=== PATIENT | male | born 1945 | race Caucasian/White ===

== ENCOUNTER 2023-07-27 08:50 | Day surgery (SDC) | payer MEDICARE, BC ==
[2023-07-26 15:10] LABS: BASOPHILS % (AUTO) 0.3 % (0-1); EOSINOPHILS # (AUTO) 0.6 X10'3 (0-0.9); EOSINOPHILS % (AUTO) 4.7 % (0-6); LYMPHOCYTES # (AUTO) 2.2 X10'3 (1.1-4.8); MEAN CORPUSCULAR HEMOGLOBIN 31.1 PG (27.0-31.0); MEAN CORPUSCULAR HGB CONC 33.3 g/dL (33.0-36.5); MEAN CORPUSCULAR VOLUME 93.4 FL (78-98); MEAN PLATELET VOLUME 8.5 FL (7.4-10.4); MONOCYTES # (AUTO) 1.7 X10'3 (0-0.9); MONOCYTES % (AUTO) 14.6 % (2-12); NEUTROPHILS # (AUTO) 7.5 X10'3 (1.8-7.7); NEUTROPHILS % (AUTO) 62.4 % (42-75); PLATELET COUNT 244 X10'3 (140-440); RED BLOOD COUNT 4.82 X10'6 (4.70-6.10)
[2023-07-26 15:19] LABS: ALBUMIN 3.9 G/DL (3.4-5.0); ANION GAP 12 (8-16); APTT 28 SECONDS (22-32); BLOOD UREA NITROGEN 14 MG/DL (7-18); BUN/CREATININE RATIO 13.2 (10.0-20.0); CALCIUM 9.2 MG/DL (8.5-10.1); CHLORIDE 101 MMOL/L (99-107); CREATININE 1.06 MG/DL (0.60-1.10); GLUCOSE 105 MG/DL (70-104); POTASSIUM 4.2 MMOL/L (3.5-5.1); SODIUM 138 MMOL/L (135-145); TOTAL CARBON DIOXIDE 24.8 MMOL/L (24-32); eGFR 68 ML/MIN
[2023-07-27] VITALS (11 sets, daily range): BP systolic 98–133; BP diastolic 50–70; PULSE 79–88; RESP 10–21; TEMP 99; O2SAT 91–96
[~2023-07-27] VITALS: Ht 182.9 cm; Wt 128.3 kg
[~2023-07-27 08:50] MED LIST: ASCO-157 PO; ASPIRIN PO; AVODART PO; CALCIUM D3; CO Q-10; CRESTOR PO; FLAX10007 PO; MAGN250T11 PO; MULTIVITAMIN; PANT-47 PO; SYNTHROID PO
[2023-07-27] MEDS ORDERED: LORazepam 0.5 MG tablet PO PRN (09:10)
[2023-07-27] MEDS ORDERED: normal saline 1,000 ML IV SCH (09:10)
[2023-07-27] MEDS ORDERED: diphenhydrAMINE 25mg capsule PO PRN (09:10)
[2023-07-27] MEDS ORDERED: fentaNYL/PF 50MCG/1 ML 2ML syringe ONE (10:51)
[2023-07-27] MEDS ORDERED: midazolam 1 mg/ML 2ml injection ONE (10:51)
[2023-07-27] MEDS ORDERED: verapamil 2.5 mg/ml inj IV ONE (10:51)
[2023-07-27] MEDS ORDERED: heparin 1,000unit/ml 10ml vial 10 ML ONE (10:52)
[2023-07-27] MEDS ORDERED: nitroGLYCERIN 500mcg/5mL D5W 5 ML IV ONE (10:52)
[2023-07-27] MEDS ORDERED: LIDOcaine 1% (10mg/ml)w/preservative inj. 20ml MDV ONE (10:52)
[2023-07-27] MEDS ORDERED: iohexol 350MG/ML 100ml bottle IV ONE (10:52)
[2023-07-27] MEDS ORDERED: heparin 25,000 UNIT/250ml bag 250 ML IV ONE (11:04)
[2023-07-27] MEDS ORDERED: clopidogrel 300mg tablet ONE (12:12)
== END 2023-07-27 17:05 | disposition home or self-care (01) ==
LOC: SSTAY O 08:50
PROVIDERS: ATTEND Internal Medicine Cardiovascular Disease
DX: I25.10 Atherosclerotic heart disease of native coronary artery without angina pectoris (principal); I35.0 Nonrheumatic aortic (valve) stenosis; E78.5 Hyperlipidemia, unspecified; E66.3 Overweight; Z68.39 Body mass index [BMI] 39.0-39.9, adult; N40.0 Benign prostatic hyperplasia without lower urinary tract symptoms; E03.9 Hypothyroidism, unspecified; K21.9 Gastro-esophageal reflux disease without esophagitis; G47.30 Sleep apnea, unspecified; Z72.89 Other problems related to lifestyle; Z79.01 Long term (current) use of anticoagulants; Z79.899 Other long term (current) drug therapy; Z98.890 Other specified postprocedural states; Z82.49 Family history of ischemic heart disease and other diseases of the circulatory system
CPT/HCPCS: 36415; 76937; 80048; 85025; 85347; 85610; 85730; 93005; 99152; 99153; A6258; C1874; C9600; J1644; J2250; J3010; J3490; J7030; Q0163; Q9967; A6402; C1725; C1751; C1769; C1894

== ENCOUNTER 2023-08-06 09:24 | Outpatient (CLI) | payer MEDICARE, BC ==
[~2023-08-06 09:24] MED LIST changes: -CALCIUM D3
[2023-08-06 10:08] LABS: BASOPHILS % (AUTO) 0.5 % (0-1); EOSINOPHILS # (AUTO) 0.4 X10'3 (0-0.9); HEMATOCRIT 45.4 % (42.0-52.0); HEMOGLOBIN 15.3 g/dl (14.0-17.9); LYMPHOCYTES # (AUTO) 1.5 X10'3 (1.1-4.8); LYMPHOCYTES % (AUTO) 15.2 % (21-51); MEAN CORPUSCULAR HEMOGLOBIN 31.6 PG (27.0-31.0); MEAN CORPUSCULAR HGB CONC 33.7 g/dL (33.0-36.5); MEAN CORPUSCULAR VOLUME 93.7 FL (78-98); MEAN PLATELET VOLUME 8.4 FL (7.4-10.4); MONOCYTES # (AUTO) 1.3 X10'3 (0-0.9); MONOCYTES % (AUTO) 13.6 % (2-12); NEUTROPHILS # (AUTO) 6.7 X10'3 (1.8-7.7); NEUTROPHILS % (AUTO) 66.7 % (42-75); PLATELET COUNT 228 X10'3 (140-440); RED BLOOD COUNT 4.85 X10'6 (4.70-6.10); RED CELL DISTRIBUTION WIDTH 13.8 % (11.5-14.5)
[2023-08-06 10:14] LABS: APTT 27 SECONDS (22-32); PROTHROMBIN TIME 10.9 SECONDS (9.0-12.0)
[2023-08-06 10:42] LABS: ALANINE AMINOTRANSFERASE 26 U/L (12-78); ALBUMIN 3.7 G/DL (3.4-5.0); ALBUMIN/GLOBULIN RATIO 0.8 (1.1-1.5); ALKALINE PHOSPHATASE 128 IU/L (46-116); ANION GAP 10 (8-16); ASPARTATE AMINO TRANSFERASE 23 U/L (10-37); BILIRUBIN,TOTAL 0.5 MG/DL (0.1-1.0); BLOOD UREA NITROGEN 15 MG/DL (7-18); BUN/CREATININE RATIO 15.2 (10.0-20.0); CALCIUM 9.2 MG/DL (8.5-10.1); CHLORIDE 103 MMOL/L (99-107); CREATININE 0.99 MG/DL (0.60-1.10); GLUCOSE 127 MG/DL (70-104); PRO BRAIN NATRIURETIC PEPTIDE 71 PG/ML (0-450); SODIUM 139 MMOL/L (135-145); TOTAL CARBON DIOXIDE 26.4 MMOL/L (24-32); TOTAL PROTEIN 8.3 G/DL (6.4-8.2); eGFR 73 ML/MIN
[2023-08-06] MEDS ORDERED: IODIXANOL 320 MG/ML INFUS..BTL 100ML IV ONE ×2 (11:01→12:01)
[2023-08-06] MEDS ORDERED: metoprolol tartrate 1mg/ml inj IV ONE ×2 (11:49→12:04)
[2023-08-06] MEDS ORDERED: atropine 0.1mg/ml 10ml syringe ONE (11:49)
[2023-08-06 11:50] VITALS: BP 126/58; PULSE 88
[2023-08-06 12:00] VITALS: BP 122/69; PULSE 91
[2023-08-06 12:10] VITALS: BP 118/59; PULSE 80
== END 2023-08-06 23:59 | disposition home or self-care (01) ==
LOC: RAD 09:24
PROVIDERS: ATTEND Internal Medicine Cardiovascular Disease
DX: I25.10 Atherosclerotic heart disease of native coronary artery without angina pectoris (principal); I35.0 Nonrheumatic aortic (valve) stenosis; R06.02 Shortness of breath; I65.29 Occlusion and stenosis of unspecified carotid artery; I65.23 Occlusion and stenosis of bilateral carotid arteries
CPT/HCPCS: 36415; 71046; 71275; 74174; 75572; 80053; 83880; 85025; 85610; 85730; 93880; 94010; 94727; 94729; J3490; Q9967; J0461

== ENCOUNTER 2023-08-09 01:52 | Emergency (ER) | payer MEDICARE, BC ==
[~2023-08-09] VITALS: Ht 177.8 cm; Wt 127.3 kg
[2023-08-09 02:19] LABS: BASOPHILS % (AUTO) 0.1 % (0-1); EOSINOPHILS # (AUTO) 0.4 X10'3 (0-0.9); EOSINOPHILS % (AUTO) 2.2 % (0-6); HEMATOCRIT 43.6 % (42.0-52.0); LYMPHOCYTES # (AUTO) 1.1 X10'3 (1.1-4.8); LYMPHOCYTES % (AUTO) 6.6 % (21-51); MEAN CORPUSCULAR HEMOGLOBIN 31.7 PG (27.0-31.0); MEAN CORPUSCULAR HGB CONC 34.3 g/dL (33.0-36.5); MEAN CORPUSCULAR VOLUME 92.3 FL (78-98); MEAN PLATELET VOLUME 8.1 FL (7.4-10.4); MONOCYTES # (AUTO) 2.3 X10'3 (0-0.9); MONOCYTES % (AUTO) 13.4 % (2-12); NEUTROPHILS # (AUTO) 13.2 X10'3 (1.8-7.7); NEUTROPHILS % (AUTO) 77.7 % (42-75); PLATELET COUNT 213 X10'3 (140-440); RED BLOOD COUNT 4.72 X10'6 (4.70-6.10); RED CELL DISTRIBUTION WIDTH 13.9 % (11.5-14.5)
[2023-08-09 02:46] LABS: ALANINE AMINOTRANSFERASE 24 U/L (12-78); ALBUMIN 3.7 G/DL (3.4-5.0); ALBUMIN/GLOBULIN RATIO 0.8 (1.1-1.5); ALKALINE PHOSPHATASE 125 IU/L (46-116); ANION GAP 11 (8-16); ASPARTATE AMINO TRANSFERASE 19 U/L (10-37); BILIRUBIN,TOTAL 0.5 MG/DL (0.1-1.0); BLOOD UREA NITROGEN 18 MG/DL (7-18); BUN/CREATININE RATIO 17.1 (10.0-20.0); CALCIUM 9.1 MG/DL (8.5-10.1); CHLORIDE 100 MMOL/L (99-107); CREATININE 1.05 MG/DL (0.60-1.10); GLUCOSE 162 MG/DL (70-104); SODIUM 136 MMOL/L (135-145); TOTAL CARBON DIOXIDE 24.6 MMOL/L (24-32); TOTAL PROTEIN 8.6 G/DL (6.4-8.2); eCRCL 61 ML/MIN; eGFR 68 ML/MIN
[2023-08-09 02:54] LABS: PRO BRAIN NATRIURETIC PEPTIDE 143 PG/ML (0-450)
[2023-08-09 03:38] LABS: PLATELET ESTIMATE NORMAL; TOTAL CELLS COUNTED 100
[2023-08-09] MEDS ORDERED: normal saline 1000ml 1,000 ML IV ONE (04:05)
[2023-08-09] MEDS ORDERED: iohexol 350MG/ML 100ml bottle IV ONE (04:14)
[2023-08-09 06:00] VITALS: TEMP 98.3
[2023-08-09 07:09] LABS: BILIRUBIN,URINE NEGATIVE (Neg); CLARITY,URINE CLEAR (Clear); COLOR,URINE YELLOW (Yellow); GLUCOSE, URINE NEGATIVE (Neg); KETONES,URINE TRACE mg/dl (Neg); LEUKOCYTE ESTERASE ,URINE NEGATIVE (Neg); NITRITES, URINE NEGATIVE (Neg); OCCULT BLOOD,URINE NEGATIVE (Neg); PH,URINE 7.5 (4.8-8.0); PROTEIN,URINE NEGATIVE (Neg)
[2023-08-09 07:10] LABS: UA COLLECTION TYPE URINAL
[2023-08-09] MEDS ORDERED: CEPH250T PO (11:07)
[2023-08-09 11:30] VITALS: BP 133/71; PULSE 107; RESP 18; O2SAT 95
== END 2023-08-09 11:20 | disposition home or self-care (01) ==
LOC: ER 01:53
DX: J06.9 Acute upper respiratory infection, unspecified (principal); Z20.822 Contact with and (suspected) exposure to COVID-19; R00.0 Tachycardia, unspecified; Z79.2 Long term (current) use of antibiotics; Z79.899 Other long term (current) drug therapy; Z95.5 Presence of coronary angioplasty implant and graft
CPT/HCPCS: 36415; 71045; 71275; 80053; 81003; 83605; 83735; 83880; 84484; 85007; 85025; 87040; 87502; 87503; 87811; 96360; 99285; J3490; J7030; Q9967; 93005